=== PATIENT | female | born 1980 ===

== ENCOUNTER → 2017-03-06 | Outpatient (CLI) | payer OTHER | LOC: CIMAGING 17:42 | PROVIDERS: ATTEND Internal Medicine Rheumatology | DX: M46.96 Unspecified inflammatory spondylopathy, lumbar region (principal); M51.34 Other intervertebral disc degeneration, thoracic region; M46.97 Unspecified inflammatory spondylopathy, lumbosacral region | CPT/HCPCS: 72070-PO; 72100-PO ==